=== PATIENT | female | born 1980 | race Caucasian/White ===

== ENCOUNTER → 2017-04-03 | Outpatient (CLI) | payer OTHER ==
--- NOTE | 2017-04-03 14:52 | RADIOLOGY REPORT (SQ) ---
EXAM DESCRIPTION: PELVIS AP COMPLETED DATE/TIME: 04/03/2017 2:44 pm REASON FOR STUDY: ENCOUNTER FOR ROUTINE CHECKING OF INTRAUTERINE CONTRACEP DEV Z30.431 ENCOUNTER FO R ROUTINE CHECKING OF INTRAUTERINE CONTR COMPARISON: None. NUMBER OF VIEWS: One view TECHNIQUE: AP Pelvis LIMITATIONS: None. FINDINGS: MINERALIZATION: Normal. HIPS: No acute fracture or dislocation. No worrisome bone lesions. PELVIS AND SACRUM: No acute fracture or dislocation. No worrisome bone lesions. PUBIS AND ISCHIUM: No acute fracture. LOWER LUMBAR SPINE: No significant findings as visualized. SOFT TISSUES: No findings. OTHER: IUD is located centrally within the pelvis with horizontal lie. IMPRESSION: NO ACUTE OSSEOUS ABNORMALITY. IUD VISUALIZED CENTRALLY WITHIN THE PELVIS WITH HORIZONTAL LIE WHICH MAY BE SECONDARY TO THE TILT OF THE UTERUS. CONSIDER PELVIC ULTRASOUND FOR CONFIRMATION. TECHNICAL DOCUMENTATION: JOB ID: [id number] [employer]- All Rights Reserved
== END ==
LOC: RAD 14:10
PROVIDERS: ATTEND Obstetrics & Gynecology
DX: Z30.431 Encounter for routine checking of intrauterine contraceptive device (principal)
CPT/HCPCS: 72170

== ENCOUNTER 2017-04-05 07:17 | Day surgery (SDC) | payer OTHER ==
[2017-04-05 08:24] LABS: HEMATOCRIT 41.1 % (36.0-47.0); HEMOGLOBIN 13.9 g/dL (12.0-15.5); MEAN CORPUSCULAR HEMOGLOBIN 30.6 pg (27.0-33.4); MEAN CORPUSCULAR HGB CONC 33.8 g/dL (32.0-36.0); MEAN CORPUSCULAR VOLUME 91 fl (80-97); PLATELET COUNT 340 10^3/uL (150-450); RED BLOOD COUNT 4.54 10^6/uL (3.72-5.28); RED CELL DISTRIBUTION WIDTH 13.4 % (11.5-14.0); WHITE BLOOD COUNT 8.3 10^3/uL (4.0-10.5)
[2017-04-05 08:25] LABS: APPEARANCE,URINE SLIGHTLY-CLOUDY; BILIRUBIN,URINE NEGATIVE (NEGATIVE); COLOR,URINE STRAW; GLUCOSE, URINE NEGATIVE (NEGATIVE); KETONES,URINE NEGATIVE (NEGATIVE); LEUKOCYTE ESTERASE,URINE NEGATIVE (NEGATIVE); NITRITE,URINE NEGATIVE (NEGATIVE); PROTEIN,URINE NEGATIVE (NEGATIVE); URINE SPECIFIC GRAVITY 1.008; UROBILINOGEN,URINE NEGATIVE mg/dL (<2.0)
[2017-04-05] MEDS ORDERED: FENTANYL CITRATE INJ/PF 100 MCG/2 ML AMPUL ONE (10:06)
[2017-04-05] MEDS ORDERED: PROPOFOL INJ 200 MG/20 ML VIAL IV ONE (10:06)
[2017-04-05] MEDS ORDERED: MIDAZOLAM 2 MG/2 ML INJ ONE (10:06)
[2017-04-05] MEDS ORDERED: PROMETHAZINE HCL INJ 25 MG/1 ML VIAL IV PRN (11:00)
[2017-04-05] MEDS ORDERED: DIPHENHYDRAMINE HCL 50 MG/ML VIAL IV PRN (11:00)
[2017-04-05] MEDS ORDERED: FENTANYL CITRATE INJ/PF 100 MCG/2 ML AMPUL IV PRN ×3 (11:00)
[2017-04-05] MEDS: FENTANYL CITRATE INJ/PF 100 MCG/2 ML AMPUL ONE ×2 (11:34→11:40)
--- NOTE | 2017-04-05 11:39 | Operative Report ---
Operative Report DATE OF SURGERY: 04/05/17 PREOPERATIVE DIAGNOSIS: Pain after IUD placement POSTOPERATIVE DIAGNOSIS: Same IUD found in the abdomen OPERATION: Hysteroscopy followed by laparoscopy with removal of IUD SURGEON: CHRISSIE BRITO ANESTHESIA: GA TISSUE REMOVED OR ALTERED: IUD removed COMPLICATIONS: None ESTIMATED BLOOD LOSS: 20 cc INTRAOPERATIVE FINDINGS: IUD present in the abdomen. Perforation of the uterus at the fundus of the uterus. No evidence of bowel injury. PROCEDURE: Patient presented to the office 1 week after IUD placement. She has pain. The IUD string was not visible at the cervix. Ultrasound did not definitively show it in the uterus. X-ray shows IUD present in the pelvis. We plan to proceed with a hysteroscopy and then laparoscopy if it is not found in the uterus. The patient was taken the OR and placed in supine position. General anesthesia was induced. Her perineum vagina and abdomen were prepared and draped in sterile fashion. Her bladder was drained with a red rubber catheter. A weighted speculum was placed in the vagina and the anterior lip cervix was grasped with a tenaculum. A gentle sound was done being careful not to disturb the IUD if it was present in the uterus. The cervix was also gently dilated. This allowed a hysteroscope to be placed. View with a hysteroscope was quite good and no IUD could be seen. All instruments were removed at this point. An incision was made at the umbilicus and the natural umbilical defect was identified and dilated with a Jeannine clamp allowing a 5 mm port to be placed bluntly. Laparoscopy confirmed appropriate placement. The abdomen was insufflated with CO2 gas. The IUD could be seen laying on top of the omentum just above the uterus. A suprapubic incision was made and a port was placed under laparoscopic visualization. A grasper was used to remove the IUD. The sales support consultant aspirator was then used to evacuate the uterine clot. The perforation site could be seen in the fundus of the uterus. There was no active bleeding. Interceed was placed over the site in an attempt to avoid any adhesions. The bowel was inspected and there was no evidence of injury to bowel or bowel contents in the pelvis. The suprapubic port was removed. The gas was allowed to escape and the umbilical port and scope were removed at the same time. The fascia at the umbilicus was closed with a 2-0 Vicryl stitch and skin the skin at both sites closed with 4-0 undyed Vicryl stitch. The patient was extubated in the OR and taken recovery in stable condition. This is the end of dictation thank you.
[2017-04-05] MEDS ORDERED: KETOROLAC TROMETHAMINE INJ/PF 30 MG/1 ML SDV ONE (11:51)
[2017-04-05] MEDS ORDERED: GLYCOPYRROLATE INJ 0.4 MG/2 ML VIAL ONE (11:54)
[2017-04-05] MEDS ORDERED: DEXAMETHASONE SOD PHOSPHATE INJ 4 MG/1 ML VIAL ONE (11:54)
[2017-04-05] MEDS ORDERED: LIDOCAINE 2% INJ-PF (20 MG/ML) 2 ML AMPUL ONE (11:54)
[2017-04-05] MEDS ORDERED: SUCCINYLCHOLINE CHLORIDE INJ 200 MG/10 ML VIAL ONE (11:54)
[2017-04-05] MEDS ORDERED: ONDANSETRON HCL INJ/PF 4 MG/2 ML SDV ONE (11:54)
[2017-04-05] MEDS ORDERED: ACETAMINOPHEN 100 ML IV ONE (11:55)
[2017-04-05] MEDS ORDERED: IBUPROFEN 800 MG TABLET PO PRN (12:00)
[2017-04-05] MEDS ORDERED: RINGERS SOLUTION,LACTATED 1,000 ML IV PRN (12:00)
[2017-04-05] MEDS ORDERED: OXYCODONE-ACETAMINOPHEN 5-325 MG TABLET PO PRN ×2 (12:01)
[2017-04-05 16:44] VITALS: BP 120/82
== END 2017-04-05 13:45 | disposition home or self-care (01) ==
LOC: OROUT 07:17
PROVIDERS: ATTEND Obstetrics & Gynecology
PROC: 0WJJ4ZZ Inspection of Pelvic Cavity, Percutaneous Endoscopic Approach (ICD-10-PCS; 2017-04-05)
PROC: 0UPD4HZ Removal of Contraceptive Device from Uterus and Cervix, Percutaneous Endoscopic Approach (ICD-10-PCS; principal; 2017-04-05 09:45)
PROC: 0UJD8ZZ Inspection of Uterus and Cervix, Via Natural or Artificial Opening Endoscopic (ICD-10-PCS; 2017-04-05 09:45)
DX: Z30.432 Encounter for removal of intrauterine contraceptive device (principal); R01.1 Cardiac murmur, unspecified
CPT/HCPCS: 36415; 85027; 81025; 81001; 58301; 58555; 49320; C1765; J2250; J1100; J3010; J1885; J0330; J2405; J2704; J0131; J3490; 840

== ENCOUNTER 2017-04-06 12:20 | Emergency (ER) | payer OTHER ==
[2017-04-06 12:29] VITALS: BP 133/72
[2017-04-06] MEDS ORDERED: NORMAL SALINE 1000 ML 1,000 ML IV ONE (12:49)
--- NOTE | 2017-04-06 12:56 | ER Document Report ---
ED Medical Screen (RME) - General Mode of Arrival: Ambulatory Information source: Patient TRAVEL OUTSIDE OF THE [place] IN LAST 30 DAYS: No <ABIDA SALGADO - Last Filed: 04/06/17 13:47> <HECTOR MARTINS - Last Filed: 04/06/17 16:33> - General Chief Complaint: Breathing Difficulty Stated Complaint: STOMACH PAIN Time Seen by Provider: 04/06/17 12:36 Notes: Patient is a 36 year old female presenting to the emergency department complaining of chest tightness and abdominal pain onset last night. Patient states she recently had surgery to have her IUD removed. Patient states her abdominal pain is located at her surgical sites. (ABIDA SALGADO) - Related Data Allergies/Adverse Reactions: No Known Allergies Allergy (Verified 05/13/14 19:37) Past Medical History - General Information source: Patient - Social History Frequency of alcohol use: None Drug Abuse: None - Immunizations Hx Diphtheria, Pertussis, Tetanus Vaccination: No History of Influenza Vaccine for 01/2017 - 06/2017 Season: No <ABIDA SALGADO - Last Filed: 04/06/17 13:47> Review of Systems - Review of Systems Constitutional: No symptoms reported EENT: No symptoms reported Cardiovascular: See HPI, Chest pain Respiratory: No symptoms reported Gastrointestinal: See HPI, Abdominal pain Genitourinary: No symptoms reported Female Genitourinary: No symptoms reported Musculoskeletal: No symptoms reported Skin: No symptoms reported Hematologic/Lymphatic: No symptoms reported Neurological/Psychological: No symptoms reported -: Yes All other systems reviewed and negative <ABIDA SALGADO - Last Filed: 04/06/17 13:47> Physical Exam - General General appearance: Appears well, Alert In distress: None - HEENT Head: Normocephalic, Atraumatic Eyes: Normal Conjunctiva: Normal - Respiratory Respiratory status: No respiratory distress Chest status: Nontender Breath sounds: Normal - Cardiovascular Rhythm: Regular Heart sounds: Normal auscultation - Extremities General upper extremity: Normal ROM General lower extremity: Normal ROM - Neurological Neuro grossly intact: Yes Cognition: Normal Orientation: AAOx4 [place] Coma Scale Eye Opening: Spontaneous Dougie Coma Scale Verbal: Oriented Dougie Coma Scale Motor: Obeys Commands Dougie Coma Scale Total: 15 Speech: Normal - Psychological Associated symptoms: Normal affect, Normal mood - Skin Skin Temperature: Warm Skin Moisture: Dry Skin Color: Normal <NAOMIISABELRICHAR - Last Filed: 04/06/17 13:47> - Vital signs Vitals: Temp Pulse Resp BP Pulse Ox 99.1 F 64 16 133/72 H 96 04/06/17 12:28 04/06/17 12:28 04/06/17 12:28 04/06/17 12:28 04/06/17 12:28 Course - Laboratory Result Diagrams: 04/06/17 13:34 04/06/17 13:34 <NAOMIISABELRICHAR - Last Filed: 04/06/17 13:47> - Laboratory Result Diagrams: 04/06/17 13:34 04/06/17 13:34 - Diagnostic Test Radiology reviewed: Reports reviewed <HECTOR MARTINS - Last Filed: 04/06/17 16:33> - Re-evaluation Re-evalutation: 04/06/17 14:57 Patient with some air under her diaphragm which is likely left over from surgery yesterday. Discussed with patient who also has referred pain into her shoulder. She appears well and is eating and drinking. No further abdominal pain. No guarding or rebound. Blood work within normal limits. Urine consistent with recent operation. Patient will be discharged home and is to follow-up with her doctor. Understands and agrees with plan. 04/06/17 16:32 I personally performed the services described in the documentation, reviewed and edited the documentation which was dictated to the scribe in my presence, and it accurately records my words and actions. (HECTOR MARTINS) - Vital Signs Vital signs: Temp Pulse Resp BP Pulse Ox 99.1 F 64 16 133/72 H 96 04/06/17 12:28 04/06/17 12:28 04/06/17 12:28 04/06/17 12:28 04/06/17 12:28 - Laboratory Laboratory results interpreted by me: 04/06/17 04/06/17 13:21 13:34 WBC 13.2 H Seg Neutrophils % 78.6 H Lymphocytes % 12.9 L Absolute Neutrophils 10.4 H Urine Blood LARGE H Doctor's Discharge <ABIDA SALGADO - Last Filed: 04/06/17 13:47> <HECTOR MARTINS - Last Filed: 04/06/17 16:33> - Discharge Clinical Impression: Postoperative pain Condition: Stable Disposition: HOME, SELF-CARE Additional Instructions: Please call your surgeon to let them know you were seen in the emergency department today. It appears that your pain is from left over gas from the surgery. If you develop a fever, trouble breathing, or any further concerns, please return to the emergency department immediately. Forms: Return to Work Scribe Documentation - Scribe Written by Scribe:: Renee Cantu, 04/06/2017 13:00 acting as scribe for :: July <ABIDA SALGADO - Last Filed: 04/06/17 13:47>
--- NOTE | 2017-04-06 13:38 | RADIOLOGY REPORT (SQ) ---
EXAM DESCRIPTION: CHEST PA/LAT COMPLETED DATE/TIME: 04/06/2017 1:20 pm REASON FOR STUDY: pain COMPARISON: Two-view chest 03/01/2011 EXAM PARAMETERS: NUMBER OF VIEWS: two views TECHNIQUE: Digital Frontal and Lateral radiographic views of the chest acquired. RADIATION DOSE: NA LIMITATIONS: none FINDINGS: Patient had laparoscopic surgery yesterday. There is trace amount of right subdiaphragmat ic free air marked with an arrow. This is appropriate for post laparoscopy change. Findings discuss ed with Dr. Mcdowell. LUNGS AND PLEURA: No opacities, masses or pneumothorax. No pleural effusion. MEDIASTINUM AND HILAR STRUCTURES: No masses or contour abnormalities. HEART AND VASCULAR STRUCTURES: Heart normal size. No evidence for failure. BONES: No acute findings. HARDWARE: None in the chest. OTHER: No other significant finding. IMPRESSION: Trace right subdiaphragmatic free air from laparoscopic procedure yesterday. No acute infiltrates. No pleural effusion or pneumothorax COMMENT: Pertinent findings on the imaging study reported as a CRITICAL RESULT to HECTOR Olivia DO at13:28 on 04/06/2017. Category of Critical Result: Subdiaphragmatic free air TECHNICAL DOCUMENTATION: JOB ID: [id number] [employer]- All Rights Reserved
[2017-04-06 13:55] LABS: ABSOLUTE LYMPHOCYTES (AUTO) 1.7 10^3/uL (0.5-4.7); ABSOLUTE MONOCYTES (AUTO) 1.1 10^3/uL (0.1-1.4); ABSOLUTE NEUT (AUTO) 10.4 10^3/uL (1.7-8.2); BASOPHILS % (AUTO) 0.2 % (0-2); EOSINOPHILS % (AUTO) 0.3 % (0-6); HEMATOCRIT 39.3 % (36.0-47.0); HEMOGLOBIN 13.4 g/dL (12.0-15.5); LYMPHOCYTES % (AUTO) 12.9 % (13-45); MEAN CORPUSCULAR HEMOGLOBIN 30.8 pg (27.0-33.4); MEAN CORPUSCULAR HGB CONC 34.1 g/dL (32.0-36.0); MEAN CORPUSCULAR VOLUME 91 fl (80-97); PLATELET COUNT 378 10^3/uL (150-450); RED BLOOD COUNT 4.34 10^6/uL (3.72-5.28); RED CELL DISTRIBUTION WIDTH 13.3 % (11.5-14.0); SEGMENTED NEUTROPHILS % (AUTO) 78.6 % (42-78); TOTAL CELLS COUNTED % (AUTO) 100 %; WHITE BLOOD COUNT 13.2 10^3/uL (4.0-10.5)
[2017-04-06 14:02] LABS: INTERNATIONAL RATION (INR) 0.87; PROTHROMBIN TIME 12.5 SEC (11.4-15.4)
[2017-04-06 14:12] LABS: APPEARANCE,URINE SLIGHTLY-CLOUDY; BILIRUBIN,URINE NEGATIVE (NEGATIVE); COLOR,URINE YELLOW; GLUCOSE, URINE NEGATIVE (NEGATIVE); KETONES,URINE NEGATIVE (NEGATIVE); LEUKOCYTE ESTERASE,URINE NEGATIVE (NEGATIVE); NITRITE,URINE NEGATIVE (NEGATIVE); PROTEIN,URINE NEGATIVE (NEGATIVE); URINE SPECIFIC GRAVITY 1.006; UROBILINOGEN,URINE NEGATIVE mg/dL (<2.0)
[2017-04-06 14:18] LABS: ALANINE AMINOTRANSFERASE 28 U/L (9-52); ALBUMIN 4.1 g/dL (3.5-5.0); ALKALINE PHOSPHATASE 88 U/L (38-126); ANION GAP 11 (5-19); ASPARTATE AMINO TRANSFERASE 17 U/L (14-36); BILIRUBIN,DIRECT 0.2 mg/dL (0.0-0.4); BILIRUBIN,TOTAL 0.3 mg/dL (0.2-1.3); BLOOD UREA NITROGEN 8 mg/dL (7-20); CALCIUM 9.6 mg/dL (8.4-10.2); CARBON DIOXIDE 26 mmol/L (22-30); CHLORIDE 105 mmol/L (98-107); GLUCOSE 81 mg/dL (75-110); POTASSIUM 4.2 mmol/L (3.6-5.0); SODIUM 142.3 mmol/L (137-145); TOTAL PROTEIN 7.1 g/dL (6.3-8.2)
--- NOTE | 2017-04-08 11:09 | EKG REPORT ---
SEVERITY:- ABNORMAL ECG - SINUS RHYTHM BORDERLINE LEFT AXIS DEVIATION NONSPECIFIC T ABNORMALITIES, INFERIOR LEADS : Confirmed by: Rupa Gao MD 08-Apr-2017 11:07:34
== END 2017-04-06 14:50 | disposition home or self-care (01) ==
LOC: ER 12:20
DX: G89.18 Other acute postprocedural pain (principal); R07.89 Other chest pain; R10.9 Unspecified abdominal pain; Z98.890 Other specified postprocedural states
CPT/HCPCS: 36415; 71020; 80053; 81001; 82962; 84484; 85025; 85610; 87040; 87086; 87088; 93005; 93010; 99284

== ENCOUNTER 2018-03-21 11:00 | Emergency (ER) | payer OTHER ==
--- NOTE | 2018-03-21 12:12 | ER Document Report ---
ED Head/Face/Scalp Injury - General Chief Complaint: Head Injury Stated Complaint: HEAD INJURY Time Seen by Provider: 03/21/18 11:41 Mode of Arrival: Ambulatory Information source: Patient Notes: 37-year-old female presented to ED for complaint of head injury a week ago. She states she hit her head on a window blind stick last week. She states she has had a headache with intermittent dizziness. Patient is alert oriented respirations regular and unlabored speaking in full sentences and walks with a even steady gait. She states she hit her head on and then yesterday redeveloped a headache. States she has had some mild nausea but no vomiting. Patient states she has had intermittent dizziness but none at this time. Patient is alert and oriented respirations regular and unlabored speaking in full sentences walks with a even steady gait. Patient's pupils are equal and reactive to light. TRAVEL OUTSIDE OF THE [place] IN LAST 30 DAYS: No - HPI Patient complains to provider of: Contusion Injury to: Head Location of problem: Head Occurred: Other Where: Home - Last Timing: Still present - Intermittent Context: Other - Hit her head on a window blind stick last week Loss consciousness: No loss of consciousness Remembers: Injury, Coming to hospital - Related Data Allergies/Adverse Reactions: No Known Allergies Allergy (Verified 05/13/14 19:37) Past Medical History - General Information source: Patient - Social History Smoking Status: Never Smoker Chew tobacco use (# tins/day): No Frequency of alcohol use: None Drug Abuse: None Occupation: Teacher Family History: Reviewed & Not Pertinent Patient has suicidal ideation: No Patient has homicidal ideation: No - Past Medical History Cardiac Medical History: Reports: None Pulmonary Medical History: Reports: None EENT Medical History: Reports: None Neurological Medical History: Reports: None Endocrine Medical History: Reports: None Renal/ Medical History: Reports: None Malignancy Medical History: Reports: None GI Medical History: Reports: None Musculoskeletal Medical History: Reports None Skin Medical History: Reports None Psychiatric Medical History: Reports: None Traumatic Medical History: Reports: None Infectious Medical History: Reports: None Past Surgical History: Reports: Hx Abdominal Surgery - lap for IUD retrieval - Immunizations Hx Diphtheria, Pertussis, Tetanus Vaccination: No Review of Systems - Review of Systems Constitutional: No symptoms reported EENT: No symptoms reported Cardiovascular: Dizziness - Intermittent Respiratory: No symptoms reported Gastrointestinal: Nausea - Intermittent Genitourinary: No symptoms reported Female Genitourinary: No symptoms reported Musculoskeletal: No symptoms reported Skin: No symptoms reported Hematologic/Lymphatic: No symptoms reported Neurological/Psychological: Headaches -: Yes All other systems reviewed and negative Physical Exam - Vital signs Vitals: Temp Pulse Resp BP Pulse Ox 98 F 67 18 132/93 H 99 03/21/18 11:01 03/21/18 11:01 03/21/18 11:01 03/21/18 11:01 03/21/18 11:01 Interpretation: Normal - General General appearance: Appears well, Alert - HEENT Head: Normocephalic, Atraumatic Eyes: Normal Pupils: PERRL Ears: Normal External canal: Normal Tympanic membrane: Normal Sinus: Normal Nasal: Normal Mouth/Lips: Normal Mucous membranes: Normal Pharynx: Normal Neck: Normal - Respiratory Respiratory status: No respiratory distress Chest status: Nontender Breath sounds: Normal Chest palpation: Normal - Cardiovascular Rhythm: Regular Heart sounds: Normal auscultation Murmur: No - Abdominal Inspection: Normal Distension: No distension Bowel sounds: Normal Tenderness: Nontender Organomegaly: No organomegaly - Back Back: Normal, Nontender - Extremities General upper extremity: Normal inspection, Nontender, Normal color, Normal ROM , Normal temperature General lower extremity: Normal inspection, Nontender, Normal color, Normal ROM , Normal temperature, Normal weight bearing. No: Alisha's sign - Neurological Neuro grossly intact: Yes Cognition: Normal Orientation: AAOx4 Dougie Coma Scale Eye Opening: Spontaneous Dougie Coma Scale Verbal: Oriented Lee Coma Scale Motor: Obeys Commands Dougie Coma Scale Total: 15 Speech: Normal Cranial nerves: Normal Cerebellar coordination: Normal Motor strength normal: LUE, RUE, LLE, RLE Additional motor exam normals: Equal mercury purifier Babinski reflex: Normal (flexor plantar) Sensory: Normal - Psychological Associated symptoms: Normal affect, Normal mood - Skin Skin Temperature: Warm Skin Moisture: Dry Skin Color: Normal Course - Re-evaluation Re-evalutation: 03/21/18 22:47 After performing a Medical Screening Examination, I estimate there is LOW risk for ACUTE GLAUCOMA, TEMPORAL ARTERITIS, MENINGITIS, INCRANIAL HEMORRHAGE, or ISCHEMIC STROKE thus I consider the discharge disposition reasonable. I have reevaluated this patient multiple times and no significant life threatening changes are noted. The patient and I have discussed the diagnosis and risks, and we agree with discharging home with close follow-up with the understanding that symptoms and presentations can change. We also discussed returning to the Emergency Department immediately if new or worsening symptoms occur. We have discussed the symptoms which are most concerning (e.g., changing or worsening symptoms, new numbness or weakness, vomiting, fever) that necessitate immediate return. - Vital Signs Vital signs: Temp Pulse Resp BP Pulse Ox 98 F 65 18 129/87 H 100 03/21/18 11:01 03/21/18 12:18 03/21/18 12:18 03/21/18 12:18 03/21/18 12:18 Discharge - Discharge Clinical Impression: head injury week ago Headache Qualifiers: Headache type: unspecified Headache chronicity pattern: acute headache Intractability: not intractable Qualified Code(s): R51 - Headache Condition: Stable Disposition: HOME, SELF-CARE Additional Instructions: HEAD INJURY PRECAUTIONS: At this point, there is no evidence that your head injury is serious. Observation is necessary, however. Take only clear liquids for the first few hours, unless told otherwise by the doctor. If no pain medication was prescribed, you may take acetaminophen according to the directions on the bottle. Do not take any medication that may alter your level of alertness (unless you've discussed it with the doctor first) . Limit activity for the first 24 hours. Bed rest is best. During the first 24 hours, check to see approximately every two to three hours that the patient is easily arousable, responds normally, and can perform common tasks such as walking without difficulty. Contact your doctor or go to the hospital if any of the following things occur: Persistent vomiting, difficulty in arousing the patient, worsening or continued headache, or failure to improve as expected. Head injuries can cause symptoms that persist for a few days or even a few weeks. Concussion You have suffered a concussion -- a temporary loss of certain brain functions due to a mild brain injury. The recovery is usually rapid and complete. The temporary problems occurring with a concussion can include loss of consciousness, dizziness, nausea, vomiting, and confusion. Repeat concussions can cause brain damage. In the future, avoid activities that will cause a blow to your head. Wear a helmet for sports such as snowboarding, biking, or skating. It's important that someone be with you for the first 24 hours. During this time, do not exercise or drive a vehicle. Do not take any pain medication stronger than acetaminophen unless prescribed by the physician. Any significant changes should be reported immediately to the physician. Signs of a problem may include: (1) Mental confusion (2) Incoordination or staggering (3) Repeated or forceful vomiting (4) Clear or bloody drainage from ear, mouth, or nose (5) Severe headache, not relieved by acetaminophen or prescribed pain medication (6) Failure to improve in 24 hours USE OF TYLENOL (ACETAMINOPHEN): Acetaminophen may be taken for pain relief or fever control. It's much safer than aspirin, offering a wider range of "safe" dosages. It is safe during . Some brand names are Tylenol, Panadol, Datril, Anacin 3, Tempra, and Liquiprin. Acetaminophen can be repeated every four hours. The following are maximum recommended dosages: WEIGHT Dose Drops Elixir Chewable( 80mg) (LBS.) drprs=droppers tsp=teaspoon 6 40 mg 0.4 ml (1/2) 6-11 80 mg 0.8 ml (full) tsp 1 tab 12-16 120 mg 1 1/2 drprs 3/4 tsp 1 1/2 tabs 17-23 160 mg 2 drprs 1 tsp 2 tabs 24-30 240 mg 3 drprs 1 1/2 tsp 3 tabs 30-35 320 mg 2 tsp 4 tabs 36-41 360 mg 2 1/4 tsp 4 1/2 tabs 42-47 400 mg 2 1/2 tsp 5 tabs 48-53 480 mg 3 tsp 6 tabs 54-59 520 mg 3 1/4 tsp 6 1/2 tabs 60-64 560 mg 3 1/2 tsp 7 tabs 65-70 600 mg 3 3/4 tsp 7 1/2 tabs 71-76 640 mg 4 tsp 8 tabs 77-82 720 mg 4 1/2 tsp 9 tabs 83-88 800 mg 5 tsp 10 tabs >89 pounds or adults 650 mg to 900 mg Acetaminophen can be repeated every four hours. Maximum dose not to exceed 4000 mg a day. These maximum recommended dosages are slightly higher than the dosages written on the product container, but these dosages are very safe and below the toxic dosage for acetaminophen. Antinausea Medication You have been given a medication to suppress nausea and vomiting. This type of medication can be given as a shot, pill, or suppository. It will usually last for many hours. Pills and shots usually last six to eight hours, suppositories last about 12 hours. For the typical illness, only one or two doses of the medication may be necessary. Mild lightheadedness may occur. This type of medicine can cause drowsiness. Do not drive or operate dangerous machinery while under its influence. Do not mix with alcohol. See your doctor at once if you have muscle spasms or tightness, or uncontrollable motions (particularly of the neck, mouth, or jaw). Persistent vomiting or severe lightheadedness should also be evaluated by the physician. ICE PACKS: Apply ice packs frequently against the painful area. Many different schedules are recommended, such as "20 minutes on, 20 minutes off" or "one hour ice, two hours rest." If you need to work, you may need to go longer between ice treatments. You should plan to have the area ice packed AT LEAST one fourth of the time. The ice should be applied over the wrap, tape, or splint, or over a layer of cloth -- not directly against the skin. Some ice bags have a built-in cloth and can be put directly on the skin. FOLLOW-UP CARE: If you have been referred to a physician for follow-up care, call the physician s office for an appointment as you were instructed or within the next two days. If you experience worsening or a significant change in your symptoms, notify the physician immediately or return to the Emergency Department at any time for re-evaluation. Prescriptions: Ibuprofen [Motrin 800 mg Tablet] 800 mg PO Q8HP PRN #14 tab PRN Reason: Ondansetron [Zofran Odt 4 mg Tablet] 1 tab PO Q6H #15 tab.rapdis Forms: Elevated Blood Pressure, Return to Work Referrals: MARBELLA MIGUEL DO [Primary Care Provider] - Follow up in 3-5 days
[2018-03-21 12:19] VITALS: BP 129/87
== END 2018-03-21 12:18 | disposition home or self-care (01) ==
LOC: ER 11:00
DX: S09.90XA Unspecified injury of head, initial encounter (principal); R51 Headache; W22.8XXA Striking against or struck by other objects, initial encounter; R42 Dizziness and giddiness; R11.0 Nausea; Y92.009 Unspecified place in unspecified non-institutional (private) residence as the place of occurrence of the external cause
CPT/HCPCS: 99283

== ENCOUNTER 2018-07-18 07:01 | Emergency (ER) | payer OTHER ==
[2018-07-18 07:11] VITALS: BP 134/92
[2018-07-18] MEDS ORDERED: ONDANSETRON ODT 4 MG TAB (6 TAB/ER DISP) PO PRN (08:22)
--- NOTE | 2018-07-18 08:22 | ER Document Report ---
HPI - HPI Time Seen by Provider: 07/18/18 08:10 Pain Level: 4 Context: Patient is a 38-year-old female who presents to the emergency department with a chief complaint of right-sided neck pain and headache. Her symptoms started 2 days ago. She states that every time she turns her head to the right, she feels a sharp pain that shoots up to her head. She has been taking ibuprofen and Tylenol for her pain. Last night she took an Excedrin Migraine, with little relief. She also complains of some nausea, but denies vomiting. She has not seen her primary care provider in regards to this problem. She does take Loestrin oxybutynin. She takes Zyrtec for seasonal allergies. Denies any fever, body aches, chills, chest pain, abdominal pain, or any other symptoms. - EENT EENT: DENIES: Sore Throat, Ear Pain, Eye problems - NEURO Neurology: REPORTS: Headache - Dull. DENIES: Weakness, Vision blurred, Dizzinesss / Vertigo - CARDIOVASCULAR Cardiovascular: DENIES: Chest pain - RESPIRATORY Respiratory: DENIES: Trouble Breathing, Coughing - GASTROINTESTINAL Gastrointestinal: DENIES: Abdominal Pain, Black / Bloody Stools - URINARY Urinary: DENIES: Dysuria, Urgency, Frequency - REPRODUCTIVE Reproductive: DENIES: : - MUSCULOSKELETAL Musculoskeletal: DENIES: Extremity pain - DERM Skin Color: Normal Skin Problems: None Past Medical History - Social History Smoking Status: Never Smoker Family History: Reviewed & Not Pertinent Patient has suicidal ideation: No Patient has homicidal ideation: No - Past Medical History Cardiac Medical History: Denies: Hx Coronary Artery Disease, Hx Heart Attack, Hx Hypertension Pulmonary Medical History: Denies: Hx Asthma, Hx Bronchitis, Hx COPD, Hx Pneumonia Neurological Medical History: Denies: Hx Cerebrovascular Accident, Hx Seizures Renal/ Medical History: Denies: Hx Peritoneal Dialysis Musculoskeletal Medical History: Denies Hx Arthritis Past Surgical History: Reports: Hx Abdominal Surgery - lap for IUD retrieval - Immunizations Hx Diphtheria, Pertussis, Tetanus Vaccination: No Vertical Provider Document - CONSTITUTIONAL Agree With Documented VS: Yes Exam Limitations: No Limitations General Appearance: No Apparent Distress - INFECTION CONTROL TRAVEL OUTSIDE OF THE [place] IN LAST 30 DAYS: No - HEENT HEENT: Atraumatic, Normocephalic - NECK Neck: Normal Inspection, Supple - RESPIRATORY Respiratory: Breath Sounds Normal, No Respiratory Distress - CARDIOVASCULAR Cardiovascular: Regular Rate, Regular Rhythm Pulses: Normal: Radial - MUSCULOSKELETAL/EXTREMETIES Musculoskeletal/Extremeties: FROM, Tender - Right side of neck. - NEURO Level of Consciousness: Awake, Alert, Appropriate - DERM Integumentary: Warm, Dry Course - Re-evaluation Re-evalutation: 07/18/18 08:22 Patient's neck pain is consistent with muscular pain. She will be given Flexeril to help with her symptoms. She will also take ibuprofen and Tylenol for her pain. I do not suspect any life-threatening etiology at this time. Do not suspect meningitis. Verbal discharge instructions were given to the patient. They verbalized understanding. They are stable for discharge. - Vital Signs Vital signs: Temp Pulse Resp BP Pulse Ox 98.3 F 70 16 134/92 H 96 07/18/18 07:09 07/18/18 07:09 07/18/18 07:09 07/18/18 07:09 07/18/18 07:09 Discharge - Discharge Clinical Impression: Neck pain Headache Qualifiers: Headache type: unspecified Headache chronicity pattern: acute headache Intractability: not intractable Qualified Code(s): R51 - Headache Condition: Stable Disposition: HOME, SELF-CARE Additional Instructions: You were seen today in the emergency department for neck and head pain. Your pain is due to muscle pain in your neck. Make sure you stretch your neck well. You have been given Flexeril, medication to help with your muscle tension. You can take Tylenol 1000 mg and ibuprofen 600 mg every 6 hours as needed for your pain. Do not exceed 4000 mg of Tylenol and 2400 mg of ibuprofen in a 24-hour period. Please follow-up with your primary care provider in regards to this visit. Prescriptions: Cyclobenzaprine HCl [Flexeril 10 mg Tablet] 10 mg PO TIDP PRN #15 tab PRN Reason: Referrals: MARBELLA MIGUEL DO [Primary Care Provider] - Follow up as needed
== END 2018-07-18 08:56 | disposition home or self-care (01) ==
LOC: ER 07:01
DX: M54.2 Cervicalgia (principal); R51 Headache; R11.0 Nausea
CPT/HCPCS: 99283